=== PATIENT | female | born 1990 | race Caucasian/White ===

== ENCOUNTER 2022-01-05 19:23 | Emergency (ER) | payer OTHER, BC ==
[~2022-01-05 19:23] MED LIST: FLOMAX0.4 MG PO; PERCOCET 5/325 T1 EA PO; TORADOL 10 MG T10 MG PO
[2022-01-05 21:11] LABS: RED BLOOD COUNT 4.69 M/UL (4.00-5.10); WHITE BLOOD COUNT 13.2 K/UL (4.5-11.0)
[2022-01-05 21:33] LABS: BUN/CREATININE RATIO 16 (0-10)
[2022-01-05] MEDS ORDERED: NAPROSYN500 MG PO (22:38)
[2022-01-05] MEDS ORDERED: CYCLOBENZAPRINE10 MG PO (22:38)
== END 2022-01-05 22:48 | disposition home or self-care (01) ==
LOC: ER1 19:23
PROVIDERS: Physician Assistant
DX: S09.90XA Unspecified injury of head, initial encounter (principal); S80.212A Abrasion, left knee, initial encounter; S60.512A Abrasion of left hand, initial encounter; R10.814 Left lower quadrant abdominal tenderness; I10 Essential (primary) hypertension; F17.200 Nicotine dependence, unspecified, uncomplicated; V89.2XXA Person injured in unspecified motor-vehicle accident, traffic, initial encounter; Y92.410 Unspecified street and highway as the place of occurrence of the external cause
CPT/HCPCS: 70450; 72125; 72128; 73130; 73564; 80053; 84703; 85025; 96374; 96375; 99284; J1885; J2405; Q9967